=== PATIENT | male | born 1995 | race Two or more races ===

== ENCOUNTER 2019-06-02 20:21 | Emergency (ER) | payer OTHER ==
[~2019-06-02] VITALS: Ht 182.9 cm; Wt 88.6 kg
--- NOTE | 2019-06-02 23:33 | REP ---
Clinical: Pain with prior trauma. Technique: AP, lateral, bilateral oblique and sunrise views of the right knee. Findings: Osseous structures are intact and there is no evidence for acute fracture or dislocation. No significant degenerative changes are appreciated. Small suprapatellar effusion cannot be excluded. Impression: Possible small suprapatellar effusion. No acute fracture or dislocation. Electronically Signed by Pete Zacarias MD 06/02/2019 11:24 P
[2019-06-03] MEDS ORDERED: KETOROLAC 60 MG/2 ML VIAL (J1885) IM ONE (00:45)
[2019-06-03] MEDS ORDERED: KETO10TAB PO (01:20)
[2019-06-03 01:34] VITALS: BP 138/83
== END 2019-06-03 01:35 | disposition home or self-care (01) ==
LOC: M ED 20:21
DX: M25.461 Effusion, right knee (principal)
CPT/HCPCS: 73564; 96372; 99284; J1885

== ENCOUNTER 2019-08-31 22:00 | Emergency (ER) | payer OTHER ==
[~2019-08-31] VITALS: Ht 182.9 cm; Wt 92.4 kg
[~2019-08-31 22:00] MED LIST: KETO10TAB PO
[2019-08-31] MEDS ORDERED: KETOROLAC 30 MG/ML VIAL (J1885) IV ONE (23:30)
[2019-08-31] MEDS ORDERED: NS 1,000 ML IV ONE (23:30)
[2019-09-01 00:14] LABS: BASO % 0.6 % (0.0-1.0); EOS # 0.2 10^3/uL (0.0-0.5); EOS % 4.3 % (0.0-3.0); HEMATOCRIT 44.6 % (42.0-52.0); HEMOGLOBIN 15.6 g/dl (13.5-17.5); LYMPH # 2.1 10^3/uL (1.5-5.0); LYMPH % 40.6 % (24.0-44.0); MEAN CORPUSCULAR HEMOGLOBIN 31.7 pg (27.0-33.0); MEAN CORPUSCULAR VOLUME 90.7 fl (80.0-96.0); MONO # 0.3 10^3/uL (0.0-0.8); MONO % 6.6 % (0.0-5.0); NEUTROPHILS # 2.4 10^3/uL (1.5-8.5); NEUTROPHILS % 47.7 % (36.0-66.0); PLATELET COUNT, AUTOMATED 126 10^3/uL (150-450); RED BLOOD COUNT 4.92 10^6/uL (4.30-6.10); WHITE BLOOD COUNT 5.1 10^3/uL (4.0-10.0)
[2019-09-01 00:19] LABS: ALBUMIN 3.7 GM/DL (3.2-5.2); ALT/SGPT 34 U/L (12-78); BILIRUBIN,TOTAL 0.6 MG/DL (0.2-1.0); BLOOD UREA NITROGEN 11 MG/DL (7-18); CALCIUM LEVEL 8.5 MG/DL (8.5-10.1); CARBON DIOXIDE LEVEL 30 MEQ/L (21-32); CHLORIDE LEVEL 105 MEQ/L (98-107); CK-MB VALUE MASS < 1.0 NG/ML (<3.6); CPK CREATINE PHOSPHOKINASE 159 U/L (39-308); CREATININE FOR GFR 1.21 MG/DL (0.70-1.30); FREE T4 0.93 NG/DL (0.76-1.46); GLOMERULAR FILTRATION RATE > 60.0 (>60); GLUCOSE, FASTING 98 MG/DL (70-100); LIPASE 86 U/L (73-393); MB/CK RELATIVE INDEX 0.63 (< OR =4); POTASSIUM SERUM 3.9 MEQ/L (3.5-5.1); SODIUM LEVEL 142 MEQ/L (136-145); TROPONIN I < 0.02 NG/ML (< 0.10)
--- NOTE | 2019-09-01 00:25 | ECGEPIP ---
[facility] - ED Test Date: 2019-08-31 Pat Name: RAMIN BAUTISTA Department: Room: - Gender: Male Clinical Data Analyst: KRISTAN : 1995 Requested By: DONIS Simpson PA-C Order Number: [id number] Reading MD: Buck Byrne Measurements Intervals [place] Rate: 64 P: 32 HI: 130 QRS: 80 QRSD: 109 T: -12 QT: 379 QTc: 393 Interpretive Statements SINUS RHYTHM NONSPECIFIC T-WAVE ABNORMALITY Comparison tracing not on file Electronically Signed on 09-01-2019 0:25:05 EDT by Buck Byrne
[2019-09-01] MEDS ORDERED: NAPR-837 PO (01:06)
[2019-09-01 01:16] VITALS: BP 130/66
--- NOTE | 2019-09-01 08:00 | REP ---
PA and lateral chest: There are no comparisons. The lung betancourt are clear. The cardiac size is normal. The melissa, mediastinum, and skeletal structures are unremarkable. Impression: Negative PA and lateral chest. The Electronically Signed by Vic Quigley MD 09/01/2019 07:52 A
== END 2019-09-01 01:18 | disposition home or self-care (01) ==
LOC: M ED 22:00
DX: R00.2 Palpitations (principal); R07.89 Other chest pain; R10.13 Epigastric pain; R94.31 Abnormal electrocardiogram [ECG] [EKG]; Z87.891 Personal history of nicotine dependence
CPT/HCPCS: 71046; 80053; 81001; 82550; 82553; 83690; 84439; 84443; 84484; 85025; 85379; 93005; 96374; 99284; J1885